=== PATIENT | female | born 1950 | race Caucasian/White ===

== ENCOUNTER 2018-03-19 12:11 | Day surgery (SDC) | payer BC ==
[2018-03-19] MEDS ORDERED: LIDOCAINE 4% SOLUTION 50 ML BTL (13:37)
[2018-03-19] MEDS ORDERED: FENTAnyl 50 MCG/ML VIAL (14:24)
[2018-03-19] MEDS ORDERED: MIDAZOLAM 1 MG/ML 2 ML INJ ×2 (14:24)
[2018-03-19] MEDS ORDERED: MEPERIDINE 50 MG INJ (14:25)
== END 2018-03-19 14:31 | disposition home or self-care (01) ==
LOC: GIL 12:11
DX: R19.4 Change in bowel habit (principal); K57.90 Diverticulosis of intestine, part unspecified, without perforation or abscess without bleeding; I10 Essential (primary) hypertension; E78.00 Pure hypercholesterolemia, unspecified
CPT/HCPCS: 45378; 88305; 88312